=== PATIENT | female | born 1975 | race Caucasian/White ===

== ENCOUNTER 2022-06-07 10:14 | Emergency (ER) | payer SELFPAY ==
[~2022-06-07] VITALS: Ht 165.1 cm; Wt 90.0 kg
[2022-06-07 10:22] VITALS: BP 164/71
[2022-06-07] MEDS ORDERED: DIAZEPAM 5 MG TABLET PO ONE (11:45)
[2022-06-07] MEDS ORDERED: KETOROLAC 60MG/2ML VIAL IM ONE (11:45)
[2022-06-07] MEDS ORDERED: METH-773 MT (13:02)
[2022-06-07] MEDS ORDERED: IBUP-2030 MT (13:02)
== END 2022-06-07 13:18 | disposition home or self-care (01) ==
LOC: ER 10:14
DX: S29.9XXA Unspecified injury of thorax, initial encounter (principal); V49.49XA Driver injured in collision with other motor vehicles in traffic accident, initial encounter; Y93.89 Activity, other specified; Y92.89 Other specified places as the place of occurrence of the external cause; Y99.8 Other external cause status; I10 Essential (primary) hypertension
CPT/HCPCS: 71250; 72125; 81025; 93005; 96372; 99284; J1885